=== PATIENT | male | born 1960 | race American Indian/Alaskan Native ===

== ENCOUNTER 2018-04-04 06:08 | Day surgery (SDC) | payer MEDICARE, BC ==
[2013-03-20 07:38] VITALS: BMI 50.9
[2018-04-04] MEDS ORDERED: Propofol 10 mg/ml Inj (20 ML) ONE (07:34)
[2018-04-04] MEDS ORDERED: Midazolam 2 MG/2 ML VIAL ONE (08:18)
[2018-04-04] MEDS ORDERED: Phenylephrine 10 mg/ml Inj ONE (08:37)
[2018-04-04 08:55] VITALS: TEMP 98.2
[2018-04-04 09:26] VITALS: RESP 16; O2SAT 100
[2018-04-04 10:06] VITALS: BP 103/66; PULSE 80
== END 2018-04-04 10:06 | disposition home or self-care (01) ==
LOC: C.ENDO 06:08
PROVIDERS: ATTEND Internal Medicine Gastroenterology
DX: K62.5 Hemorrhage of anus and rectum (principal); R13.10 Dysphagia, unspecified; K44.9 Diaphragmatic hernia without obstruction or gangrene; K31.7 Polyp of stomach and duodenum; K29.70 Gastritis, unspecified, without bleeding; Z12.11 Encounter for screening for malignant neoplasm of colon; D12.2 Benign neoplasm of ascending colon; D12.4 Benign neoplasm of descending colon
CPT/HCPCS: 43239; 45380; 45384; 88305; J2250; J2370; J2704; J3010; J7040